=== PATIENT | male | born 1970 | race Caucasian/White ===

== ENCOUNTER 2024-12-07 16:23 | Inpatient (IN) ==
--- NOTE | 2024-12-07 16:38 | Emergency Department Note ---
Impression & Plan Atrial fibrillation with rapid ventricular response, Chest pain, Elevated troponin I level ED Provider Note NAME: BARBARA VILLATORO AGE: 54 SEX: M : 1970 ARRIVES VIA: Ambulance INFORMANT: Patient, ED PROVIDER(S): Dejon Phan DO CHIEF COMPLAINT: Palpitations HPI: The patient is a 54-year-old male who presented to the emergency department for an evaluation of palpitations. The patient states that he has been having fast heart rate as well as chest discomfort over the course the last 3 to 4 days. The patient went to his family doctor and they called 911 and sent the patient to the emergency department by ambulance for abnormal heart rhythm. He was treated with 4 baby aspirin prior to arrival. He was given a small IV fluid bolus. The patient does drink alcohol almost daily but he has not had any alcohol in the last 4 days since the symptoms started. He also notices dyspnea on exertion as well as pedal edema. ROS: See above HPI for pertinent positives & negatives. A total of 10 systems reviewed and were otherwise negative. PAST MEDICAL HISTORY: See Below PAST SURGICAL HISTORY: See Below FAMILY HISTORY: See Below SOCIAL HISTORY: See Below HOME MEDICATIONS: See Below ALLERGIES: See Below VITALS: See Below PHYSICAL EXAMINATION: GENERAL: Patient is awake alert in no acute distress patient is resting comfortably and showing no signs of anxiety EYES: The conjunctivae are clear. The pupils are round and reactive. EARS, NOSE, MOUTH AND THROAT: The nose is without any evidence of any deformity. NECK: The neck is nontender and supple. RESPIRATORY: Diminished breath sounds are noted at both bases. There were faint rales at both bases right greater than left. CARDIOVASCULAR: Regular rate and rhythm noted there no murmurs rubs or gallops normal S1 normal S2. GASTROINTESTINAL: The abdomen is soft. Abdomen is nontender. MUSCULOSKELETAL/EXTREMITIES: There is no evidence of gross deformity full range of motion is noted in the hips and shoulders. SKIN: Pedal edema was noted bilaterally. Skin was warm and dry. NEUROLOGIC: Patient is awake alert and oriented x3 MEDICAL DECISION MAKING: The patient is a 54-year-old male who presented to the emergency department for an evaluation of chest pain. The patient was seen at [facility]. Patient was sent to the emergency department by ambulance for atrial fibrillation and RVR. The patient appears to have a new onset of atrial fibrillation. He does have a history of alcohol use. The patient does have cardiomegaly on chest x-ray. He was treated with IV thiamine IV magnesium and IV Cardizem in the emergency department. His rate was significantly improved and the patient's symptoms also improved. I discussed the patient's laboratory and radiographic studies with him. [facility] They have agreed to evaluate the patient in the emergency department for further management and disposition. Triage Nursing notes reviewed. Prior medical records reviewed Vital Signs: reviewed and remarkable for tachycardia and hypertension. Differential diagnosis: Premature contractions, electrolyte abnormality, cardiac dysrhythmia, thyroid dysfunction, pulmonary embolism, infection, gastrointestinal, as well as other pathologies. ER treatment provided: See below Diagnostics interpreted by me: ECG: EKG was obtained in the emergency department. My interpretation is atrial fibrillation with RVR at 146 bpm. PVCs were noted. Poor R wave progression was noted with nonspecific ST segment abnormalities. No previous tracing available. Cardiac Monitoring: An order was placed for continuous cardiac monitoring. The monitor shows a rate of 98 bpm with atrial fibrillation. Laboratory studies: As stated above and show below. Imaging studies: See below. Radiographic imaging was reviewed by myself Consultation(s): I discussed this case with Dr. Murray who is [facility]. ED COURSE: Procedures: none Critical Care: I have personally spent greater than 40 minutes of critical care time in the direct management of this patient. This includes bedside care, interpretation of diagnostic studies, and testing, discussion with consultants, patient, and family members, and other required patient management activities. This 40 minutes is in excess of all separately billable procedures. Past Med/Surg History Problem List (Updated 12/07/24 @ 18:26 by Dejon Phan DO) Elevated troponin I level (Acute) Chest pain (Acute) Atrial fibrillation with rapid ventricular response (Acute) Social History Smoking Status: Current some day smoker Tobacco Type: Cigarettes Hx Alcohol Use: Yes Feels Safe at Home: Yes Results & Data (ED) Vital Signs Vital Signs - 24 hr 12/07/24 16:32 12/07/24 16:32 12/07/24 16:32 Temperature 37.5 C Temperature Source Oral Pulse Rate 127 H 132 H Pulse Rhythm Regular Pulse Strength Normal Respiratory Rate 29 H Respiratory Effort / Characteristics Non-Labored Respiratory Depth Normal Respiratory Pattern Regular Blood Pressure 153/124 H Blood Pressure Mean 133 Blood Pressure Position Sitting Pulse Oximetry 98 Oxygen Delivery Method Room Air Nasal Cannula Oxygen Flow Rate 4 Sepsis Recent Fever Within 48 Hours No Sepsis New/Unexplained Change in Mental Status N/A Sepsis Action Taken by Nursing Physician Notified Home Medications Current Medication List: was personally reviewed by me Laboratory Data Attestation: I reviewed the patient's lab results. 12/07/24 16:34 12/07/24 16:34 Lab Results 12/07/24 Range/Units 16:34 WBC 8.76 (4.8-10.8) K/ul RBC 5.44 (4.70-6.10) M/uL Hgb 17.1 (14.0-18.0) g/dl Hct 49.9 (42.0-52.0) % MCV 91.7 (80.0-100.0) fL MCH 31.4 (25.0-34.0) pg MCHC 34.3 (32.0-36.0) g/dL RDW Std Deviation 47.5 H (36.4-46.3) fL RDW Coeff of Crystal 14.1 (11.5-14.5) % Plt Count 204 (130-400) K/uL MPV 10.6 (9.4-12.4) fL Immature Gran % (Auto) 0.3 % Neut % (Auto) 68.8 % Lymph % (Auto) 19.4 % Mason % (Auto) 9.7 % Eos % (Auto) 0.8 % Baso % (Auto) 1.0 % Neut # (Auto) 6.02 (1.40-6.50) K/uL Lymph # (Auto) 1.70 (1.20-3.40) K/uL Mason # (Auto) 0.85 H (0.11-0.59) K/uL Eos # (Auto) 0.07 (0.00-0.50) K/uL Baso # (Auto) 0.09 (0.00-0.20) K/uL Immature Gran # (Auto) 0.03 (0.01-0.20) K/uL PT 13.6 H (9.0-12.0) Seconds INR 1.3 H (0.9-1.1) APTT 27 (21-31) Seconds PTT Ratio 1.0 Sodium 132 L (136-145) mmol/L Potassium 4.4 (3.5-5.1) mmol/L Chloride 101 (98-107) mmol/L Carbon Dioxide 22 (21-32) mmol/L Anion Gap 9 (3-11) BUN 19 (6-23) mg/dl Creatinine 1.07 (0.6-1.4) mg/dl Est Cr Clr Drug Dosing 104.5 ml/min eGFR 82.98 BUN/Creatinine Ratio 17.8 (10-20) Glucose 111 H (70-99(Fasting)) mg/dl Calcium 9.0 (8.6-10.3) mg/dl Magnesium 1.8 (1.7-2.4) mg/dl Total Bilirubin 2.1 H (0.2-1.0) mg/dl AST 48 H (13-39) U/L ALT 38 (7-52) U/L Alkaline Phosphatase 110 H (34-104) U/L Troponin I High Sens 44.5 H (0-20) pg/ml Total Protein 6.6 (6.0-8.3) gm/dl Albumin 4.1 (3.4-5.0) gm/dl Globulin 2.5 (2.5-4.0) gm/dl Albumin/Globulin Ratio 1.6 (0.9-2) TSH 1.143 (0.300-4.500) uIu/ml Administered Medications Magnesium Sulfate/Dextrose (Magnesium Sulfate / D5w) 1 gm in 100 mls @ 100 mls/hr IV Q1H [facility] Stop: 12/07/24 18:33 Last Admin: 12/07/24 18:14 Dose: 100 mls/hr Documented By: Infusion: 12/07/24 18:06 Dose: Infused Documented By: Admin: 12/07/24 16:53 Dose: 100 mls/hr Documented By: RICARDO Discontinued Medications Diltiazem HCl (Diltiazem Hcl 5 Mg/Ml 5 Ml Vial) 20 mg IV NOW STA Stop: 12/07/24 16:35 Last Admin: 12/07/24 16:51 Dose: 20 mg Documented By: RICARDO Co-signed By: QGV Thiamine HCl 200 mg/ Sodium (Chloride) 52 mls @ 210 mls/hr IV NOW STA Stop: 12/07/24 16:48 Last Admin: 12/07/24 18:15 Dose: 210 mls/hr Documented By: RICARDO Imaging Data Attestation: I personally reviewed and interpreted this imaging study as follows: My Impression: 1 view chest x-ray was obtained in the emergency department. My interpretation is cardiomegaly with right pleural effusion, final report below. Radiologist's Impression: Chest X-Ray 12/07/24 16:28 EXAM: XR chest 1V portable CLINICAL HISTORY: CHEST PAIN HKS/MRN TECHNIQUE: An X-ray image of the chest is obtained in AP projection. COMPARISON: No prior studies are available for comparison. FINDINGS: Pulmonary Parenchyma: Bilateral lower zonal pulmonary opacities with obliterated costophrenic angles bilaterally suggestive of mild pleural effusion Exaggerated bilateral bronchovascular markings likely caused by bronchitis for clinical correlation Small left midlung nodule, probable orthogonal view of prominent vessel, however a pulmonary nodule cannot entirely be ruled out. Heart and Mediastinum: Cardiac size cannot be accurately assessed in AP projection, however cardiac shadow appears enlarged. Bony Thorax: Bony thorax appears intact without fractures or deformities. Soft Tissues: Soft tissues overlying the chest wall are unremarkable. IMPRESSION: 1. Probable mild bilateral pleural effusion. 2. Accentuated bronchovascular markings consistent with bronchitic changes. 3. Small left midlung nodule, probable orthogonal view of prominent vessel, however a pulmonary nodule cannot entirely be ruled out. 4. Cardiomegaly. 5. Correlate clinically. Further evaluation with CT recommended if clinically warranted. Electronically signed by Rush Kennedy 12-07-2024 5:34 PM Discharge Plan Visit Data Chief Complaint: Chest Pain Stated Complaint: CHEST PAIN ED Provider: Dejon Phan Discharge Problem: Atrial fibrillation with rapid ventricular response, Chest pain, Elevated troponin I level Patient Disposition: Being Evaluated by Hospitalist Forms Stand Alone Forms: My [facility] Referrals Referrals: PCP,NO [Primary Care Provider] - Discharge Problem: Chest pain Qualifiers: Chest pain type: unspecified Qualified Code(s): R07.9 - Chest pain, unspecified
[2024-12-07 16:50] LABS: Basophils # (auto) 0.09 K/uL (0.00-0.20); Eosinophils # (auto) 0.07 K/uL (0.00-0.50); Eosinophils % (auto) 0.8 %; Hematocrit (blood only) 49.9 % (42.0-52.0); Hemoglobin 17.1 g/dl (14.0-18.0); Immature Granulocytes # (auto) 0.03 K/uL (0.01-0.20); Immature Granulocytes % (auto) 0.3 %; Lymphocytes % (auto) 19.4 %; Mean Corpuscular Hemoglobin 31.4 pg (25.0-34.0); Mean Corpuscular Hgb Conc 34.3 g/dL (32.0-36.0); Mean Corpuscular Volume 91.7 fL (80.0-100.0); Mean Platelet Volume 10.6 fL (9.4-12.4); Monocytes # (auto) 0.85 K/uL (0.11-0.59); Monocytes % (auto) 9.7 %; Neutrophils # (auto) 6.02 K/uL (1.40-6.50); Neutrophils % (auto) 68.8 %; Platelet Count 204 K/uL (130-400); RDW Coefficient of Variation 14.1 % (11.5-14.5); RDW Standard Deviation 47.5 fL (36.4-46.3); Red Blood Count 5.44 M/uL (4.70-6.10); White Blood Count 8.76 K/ul (4.8-10.8)
[2024-12-07] MEDS: dilTIAZem HCl 5 MG/ML 5 ML VIAL IV STA (16:51)
[2024-12-07] MEDS: MAGNESIUM SULFATE / D5W 1 GM/100 ML BAG IV SCH (16:53)
[2024-12-07 17:04] LABS: Albumin Globulin Ratio 1.6 (0.9-2); Albumin Level 4.1 gm/dl (3.4-5.0); BUN Creatinine Ratio 17.8 (10-20); Bilirubin,Total 2.1 mg/dl (0.2-1.0); Creatinine Clr Calc Pharmacy 104.5 ml/min; Globulin 2.5 gm/dl (2.5-4.0); Magnesium 1.8 mg/dl (1.7-2.4); Potassium 4.4 mmol/L (3.5-5.1); Total Protein 6.6 gm/dl (6.0-8.3)
[2024-12-07 17:10] LABS: Troponin I High Sensitivity 44.5 pg/ml (0-20)
[2024-12-07 17:20] LABS: Thyroid Stimulating Hormone 1.143 uIu/ml (0.300-4.500)
--- NOTE | 2024-12-07 17:34 | XRay Report ---
EXAM: XR chest 1V portable CLINICAL HISTORY: CHEST PAIN HKS/MRN TECHNIQUE: An X-ray image of the chest is obtained in AP projection. COMPARISON: No prior studies are available for comparison. FINDINGS: Pulmonary Parenchyma: Bilateral lower zonal pulmonary opacities with obliterated costophrenic angles bilaterally suggestive of mild pleural effusion Exaggerated bilateral bronchovascular markings likely caused by bronchitis for clinical correlation Small left midlung nodule, probable orthogonal view of prominent vessel, however a pulmonary nodule cannot entirely be ruled out. Heart and Mediastinum: Cardiac size cannot be accurately assessed in AP projection, however cardiac shadow appears enlarged. Bony Thorax: Bony thorax appears intact without fractures or deformities. Soft Tissues: Soft tissues overlying the chest wall are unremarkable. IMPRESSION: 1. Probable mild bilateral pleural effusion. 2. Accentuated bronchovascular markings consistent with bronchitic changes. 3. Small left midlung nodule, probable orthogonal view of prominent vessel, however a pulmonary nodule cannot entirely be ruled out. 4. Cardiomegaly. 5. Correlate clinically. Further evaluation with CT recommended if clinically warranted. Electronically signed by Rush Kennedy 12-07-2024 5:34 PM
[2024-12-07 17:46] LABS: INR 1.3 (0.9-1.1); Partial Thromboplastin Time 27 Seconds (21-31); Prothrombin Time 13.6 Seconds (9.0-12.0)
[2024-12-07] MEDS: THIAMINE HCL 200 MG in SODIUM CHLORIDE 0.9% 50 ML IV STA (18:15)
--- NOTE | 2024-12-07 18:20 | History & Physical Report ---
Date of Service December 07, 2024 History of Present Illness Chief Complaint: CP Primary Care Provider: NO PCP Patient is 54 year old male with PMH HTN, anxiety, ETOH abuse, tobacco use presented to ER with c/o CP. Patient states moved to area several years ago but has not got established with PCP here. He reports being on BP med (?lisinopril 20mg, HCTZ) and an unknown anxiety medicine however he stopped taking several years ago since he never established with PCP. He attempted to get established at [facility] today. Presented there today for CP and found to be in Afib RVR and sent to ER. Patient states started with anterior CP with exertion, neck tightness, and SOB 4 days ago. He also noticed LE edema and swollen abdomen 4 days ago. Also felt lightheaded but denies syncope. He reports ongoing cough. Drinks Rum 3 "big glasses" daily and estimates it equal approximately 9 shots. He reports last drink 3-4 days ago when his CP & SOB symptoms started. Attempting to quit smoking went from 1/2ppd and past 2 months smoking 2-3 cigarettes a day. Past 4 days has not been smoking. He denies known history of atrial fibrillation, CHF, cirrhosis. Denies history ETOH withdrawal but states hasn't been without alcohol for several years. Denies fever/chills, diaphoresis, N/V/D/C, LOPEZ, vision changes, hemoptysis, sore throat, rhinorrhea, abdominal pain, extremity weakness, rashes, urinary symptoms. Allergies Allergy/AdvReac Type Severity Reaction Status Date / Time amoxicillin Allergy Mild Rash Verified 12/08/24 08:20 LINDA LINDA Allergy Rash Uncoded 12/08/24 08:20 Home Medications Medication Instructions Recorded Confirmed Type No Known Home Medications 12/07/24 12/07/24 History No Known Home Medications 12/07/24 12/07/24 History Past Med/Surg History Problem List (Updated 12/08/24 @ 08:20 by Tere Suarez) ETOH abuse Elevated LFTs Abnormal CXR Elevated troponin I level (Acute) Chest pain (Acute) Atrial fibrillation with rapid ventricular response (Acute) Atrial fibrillation with RVR History of eustachian tube dysfunction H/O hernia repair Anxiety Hypertension Medical History (Updated 12/08/24 @ 08:20 by Tere Suarez) Tobacco use Anxiety HTN (hypertension) Family History (System 12/08/24 @ 08:20 by Tere Suarez) Mother Hypertension Father Hypertension Social History (System 12/08/24 @ 08:20 by Tere Suarez) Smoking Status: Current every day smoker Tobacco Type: Cigarettes Age Started Using Tobacco: 16; Age Quit Using Tobacco: 54; packs per day: 1; Cigarettes Per Day: 1 pack per day; Second Hand Exposure: No; Do You Dip or Chew Tobacco: No; Hx Alcohol Use: Yes Alcohol type: hard liquor Alcohol Intake Frequency: 2-4 x/Month Hx Substance Use: No Preferred Language: Omani Communication Ability: Effective Visual Impairment: Limited Hearing Ability: Normal Pharmacy Specialist Required: No Beliefs That Will Affect Care: None marital status: Single Current Living Situation: Parent Current Living Situation Comment: Lives with parents. current occupational status: employed How many Children do You have: 0 Feels Safe at Home: Yes Safety Concerns: Feels Safe At This Time Childhood Exposure to Second-Hand Smoke: No Diet: regular caffeine: No during the past year weight has: remained stable Dental Care, Regularly: No Physical Activity Frequency: Does not Exercise Seatbelt Use: always Sunscreen Use: Yes Do you think of yourself as: straight/heterosexual Sexual Activity: has been sexually active, but not for at least 12 months Gender Identity: Male Assistive Devices: Glasses Review of Systems Review of Systems: All systems reviewed & are unremarkable except as noted in HPI & below Physical Exam Physical Exam: General: no acute distress, obese male Head: normocephalic, atraumatic Eyes: conjunctiva non-injected, anicteric ENT: normal inspection external ears, nose, mucous membranes moist Neck: supple, trachea midline Lungs: clear, no respiratory distress, faint expiratory wheeze, slightly diminished breath sounds at bases CV: irregularly irregular, rate 106, +pretibial edema Abd: protuberant, normal BS, soft, non-tender Ext: no cyanosis, no calf tenderness Neuro: A&O x 3, no focal deficits noted, normal affect Skin: warm, dry Results & Data Results & Data Vital Signs (Past 12 Hours) Vital Signs Temp Pulse Resp BP Pulse Ox O2 Del Method O2 Flow Rate 12/07/24 16:32 132 H 12/07/24 16:32 Nasal Cannula 4 12/07/24 16:32 37.5 C 127 H 29 H 153/124 H 98 Room Air Laboratory Results Short CBC 12/07/24 Range/Units 16:34 WBC 8.76 (4.8-10.8) K/ul Hgb 17.1 (14.0-18.0) g/dl Hct 49.9 (42.0-52.0) % Plt Count 204 (130-400) K/uL BMP 12/07/24 16:34 Sodium 132 L Potassium 4.4 Chloride 101 Carbon Dioxide 22 BUN 19 Creatinine 1.07 Glucose 111 H Calcium 9.0 Liver Function 12/07/24 Range/Units 16:34 Total Bilirubin 2.1 H (0.2-1.0) mg/dl AST 48 H (13-39) U/L ALT 38 (7-52) U/L Alkaline Phosphatase 110 H (34-104) U/L Albumin 4.1 (3.4-5.0) gm/dl Diagnostic Findings Chest X-Ray 12/07/24 16:28 EXAM: XR chest 1V portable CLINICAL HISTORY: CHEST PAIN HKS/MRN TECHNIQUE: An X-ray image of the chest is obtained in AP projection. COMPARISON: No prior studies are available for comparison. FINDINGS: Pulmonary Parenchyma: Bilateral lower zonal pulmonary opacities with obliterated costophrenic angles bilaterally suggestive of mild pleural effusion Exaggerated bilateral bronchovascular markings likely caused by bronchitis for clinical correlation Small left midlung nodule, probable orthogonal view of prominent vessel, however a pulmonary nodule cannot entirely be ruled out. Heart and Mediastinum: Cardiac size cannot be accurately assessed in AP projection, however cardiac shadow appears enlarged. Bony Thorax: Bony thorax appears intact without fractures or deformities. Soft Tissues: Soft tissues overlying the chest wall are unremarkable. IMPRESSION: 1. Probable mild bilateral pleural effusion. 2. Accentuated bronchovascular markings consistent with bronchitic changes. 3. Small left midlung nodule, probable orthogonal view of prominent vessel, however a pulmonary nodule cannot entirely be ruled out. 4. Cardiomegaly. 5. Correlate clinically. Further evaluation with CT recommended if clinically warranted. Electronically signed by Rush Kennedy 12-07-2024 5:34 PM ECG Additional Comments: EKG: Atrial fibrillation, RVR, rate 146, nonspecific ST changes per my interpretation Code Status & VTE Plan VTE Prophylaxis Plan VTE Prophylaxis will be ordered: Yes Supervising Physician Co-Signing Physician Notes Pt seen and examined by me , care coordinated w/ J. JOSIE Prince, pls refer to her note above for further detail. 54 yo M with hx of HTN, anxiety, ETOH abuse, tobacco use presented to ER with c/o CP. Patient states moved to [facility] several years ago but has not got established with PCP here. He reports being on BP med (?lisinopril 20mg, HCTZ) and an unknown anxiety medicine however he stopped taking several years ago since he never established with PCP. He attempted to get established at [facility] today. Presented there today for CP and found to be in Afib RVR and sent to ER. Patient states started with anterior CP with exertion, neck tightness, and SOB 4 days ago. He also noticed LE edema and swollen abdomen 4 days ago. Pt also admits he drinks Rum 3 "big glasses" daily and estimates it equal approximately 9 shots. He reports last drink 3-4 days ago when his CP & SOB symptoms started. Currently sitting up in bed in [facility]. He is awake, alert, answers appropriately. heart sounds irregular tachycardic. lung sounds with mild wheezes. abdomen soft, nontender. LE edema 1+ b/l. pt is moving extremities. Given IV diltiazem in ER, mag thiamine. Will start IV heparin and po metoprolol. Will obtain echo and will consult w/ cardiology. Monitor for alcohol withdrawal, start gabapentin, prn ativan, thiamine, folate. MD Trevor
[2024-12-07] MEDS ORDERED: Heparin IV Adult Wt-Based Standard *NO* INITIAL Bolus Protocol IV SCH (18:39)
[2024-12-07] MEDS: LORazepam 0.5 MG TAB PO STA (19:13)
[2024-12-07] MEDS: METOPROLOL TARTRATE 50 MG TAB PO STA (19:13)
[2024-12-07] MEDS ORDERED: ACETAMINOPHEN 325 MG TAB PO PRN (19:48)
[2024-12-07] MEDS ORDERED: LORazepam 2 MG/1 ML VIAL IV PRN (19:48)
[2024-12-07] MEDS ORDERED: PROMETHAZINE 6.25 MG/50.25 ML BAG IV PRN (19:48)
[2024-12-07] MEDS ORDERED: GABAPENTIN 1200MG ALCOHOL WITHDRAWAL LOAD PO STA (19:48)
[2024-12-07 20:03] LABS: Phosphorus 3.7 mg/dl (2.5-4.9)
[2024-12-07] MEDS: HEPARIN 25000 UNIT/500 ML D5W 25,000 UNITS/500 ML BAG IV SCH (20:33)
[2024-12-07] MEDS: GABAPENTIN 600 MG TAB PO ONE (21:19)
[2024-12-07] MEDS: METOPROLOL TARTRATE 25 MG TAB PO SCH (22:50)
[2024-12-08 00:18] LABS: Appearance Urine Clear (Clear); Bacteria Urine Automated None Seen (None Seen); Bilirubin Urine 1+ (Negative); Blood Urine Negative (Negative); Cast Urine Automated >20 /lpf (0-2); Color Urine Dark Yellow; Epithelial Cell Urine Auto 0-2 /hpf (0-2); Glucose Urine UA Negative (Negative); Hyaline Casts Urine Present /lpf (None Presnt); Ketones Urine Negative (Negative); Leukocyte Esterase Urine Negative (Negative); Nitrite Urine Negative (Negative); Protein Urine 3+ (Negative); RBC Urine Automated 0-2 /hpf (0-2); Specific Gravity Urine 1.026 (1.000-1.030); Sperm Urine Present (None Prsent); Urobilinogen Urine Positive (Negative); WBC Urine Automated 0-5 /hpf (0-5)
[2024-12-08 02:09] LABS: Hematocrit (blood only) 47.6 % (42.0-52.0); Hemoglobin 15.9 g/dl (14.0-18.0); Mean Corpuscular Hemoglobin 30.8 pg (25.0-34.0); Mean Corpuscular Hgb Conc 33.4 g/dL (32.0-36.0); Mean Corpuscular Volume 92.2 fL (80.0-100.0); Mean Platelet Volume 10.4 fL (9.4-12.4); Platelet Count 194 K/uL (130-400); RDW Coefficient of Variation 14.1 % (11.5-14.5); RDW Standard Deviation 48.7 fL (36.4-46.3); Red Blood Count 5.16 M/uL (4.70-6.10); White Blood Count 8.22 K/ul (4.8-10.8)
[2024-12-08 02:27] LABS: Albumin Globulin Ratio 1.8 (0.9-2); Albumin Level 3.8 gm/dl (3.4-5.0); Bilirubin,Total 1.6 mg/dl (0.2-1.0); Calcium 8.7 mg/dl (8.6-10.3); Creatinine Clr Calc Pharmacy 106.5 ml/min; Globulin 2.1 gm/dl (2.5-4.0); Magnesium 2.1 mg/dl (1.7-2.4); Potassium 4.7 mmol/L (3.5-5.1); Total Protein 5.9 gm/dl (6.0-8.3)
[2024-12-08 02:37] LABS: ANTI-Xa, UFH(UnfractionatedHep 0.53 IU/ml (0.3-0.7)
[2024-12-08] MEDS: GABAPENTIN 600 MG TAB PO SCH ×2 (05:48→21:22)
[2024-12-08 07:15] LABS: Estimated Average Glucose 128 mg/dl; Hemoglobin A1C 6.1 % (4.5-5.6)
[2024-12-08] MEDS: FOLIC ACID 1 MG TAB PO SCH (10:01)
[2024-12-08] MEDS: MULTIVITAMIN TAB PO SCH (10:01)
[2024-12-08] MEDS: THIAMINE HCL 100 MG TAB PO SCH (10:02)
[2024-12-08 10:12] LABS: ANTI-Xa, UFH(UnfractionatedHep 0.65 IU/ml (0.3-0.7)
--- NOTE | 2024-12-08 10:54 | Cardiology Consultation ---
Date of Consultation December 08, 2024 Assessment & Plan (1) Acute HFrEF (heart failure with reduced ejection fraction): (2) Cardiomyopathy: (3) Atrial fibrillation with rapid ventricular response: (4) ETOH abuse: (5) Tobacco use: (6) Pericardial effusion: Plan ASSESSMENT/PLAN: 1. Acute heart failure with reduced EF: Etiology likely related to alcohol abuse and/or tachycardia in the setting of atrial fibrillation with rapid ventricular response. We discussed this in detail. He is hypervolemic. NYHA class III/IV symptoms. Start Lasix 20 mg IV twice daily. Strict I's and O's (discussed with nursing staff and patient). Daily weights. We discussed the importance of a low-sodium diet, less than 2000 mg daily. Heart failure program referral. We discussed close follow-up in the office and that he will be placed on several new medications to try to improve his quality of life and hopefully LV systolic function. 2. Atrial fibrillation with rapid ventricular response: Onset unclear. May have been present for some time. Could be related to his excessive alcohol use, which was discussed with him. Heart rate improved with low-dose metoprolol. Continue metoprolol tartrate for now. On discharge, would recommend metoprolol succinate in its place given heart failure with reduced EF. Anticoagulation for stroke risk reduction. Can continue heparin drip for now but would recommend Eliquis 5 mg twice daily on discharge. Monitor CBC and renal function. We discussed potentially performing transesophageal echo and cardioversion but he declines. Could consider cardioversion in the outpatient setting after 4 weeks of therapeutic anticoagulation therapy. 3. Cardiomyopathy: Etiology likely related to excessive alcohol abuse and/or tachycardia from A-fib with RVR. Cannot exclude ischemic heart disease. We discussed these possibilities. He declines coronary angiography. He prefers medical therapy and alcohol cessation. If LV systolic function remains severely reduced despite these measures, can further discuss ischemic evaluation in the o utpatient setting. If related to alcohol/tachycardia, should improve with medical therapy, alcohol cessation, and heart rate control. No indication for ICD for primary prevention currently, but would consider if LV systolic function does not improve despite optimal medical therapy in 3 months. Continue telemetry. 4. Pericardial effusion: Small. He will have repeat echocardiograms in the near future to reevaluate LV systolic function. Clinically not in tamponade. 5. Tobacco abuse: Recommended smoking cessation. 6. Alcohol abuse: We discussed at length the importance of cessation from alcohol use, given his cardiac issues as noted. He also has elevated AST and elevated bilirubin. Will defer to primary hospitalist service for further evaluation of his liver if indicated. We discussed that his heart failure will not likely improve if he continues to consume large amounts of alcohol and he could lose his life given his current cardiac issues. We also discussed the fact that if alcohol is playing a role, he should show improvement with appropriate therapy. He expressed understanding. 7. Disposition: Cardiology will continue to follow. Heart failure program close follow-up after discharge. Patient care communicated with primary hospitalist, Dr. Johnson. Highly complex medical issues. Thank you for allowing me to participate in the care of your patient. Please call for any other questions or concerns. Sincerely, Sunny Gee M.D. History of Present Illness Reason for Consultation: "afib rvr" Requesting Physician: Zenaida Prince PA-C Attending Physician: Bret Murray MD History of Present Illness Mr. Maza is a pleasant 54-year-old gentleman with a history significant for prediabetes and hypertension. He has not followed up with primary care for some time. He was admitted on 12/07/2024 with atrial fibrillation with rapid ventricular response. For a few months, he has noted a chest discomfort on the right side of his chest and left that radiates to the right neck. It occurs mostly with exertion and was described as a pressure sensation that lasts for a few seconds before spontaneously resolving. For the last 1 week, he has noted increased lower extremity swelling, dyspnea on exertion, and orthopnea. He denies syncope but has had near syncope if walking quickly. He denies palpitations, melena, hematochezia, or hematuria. He does not maintain a low-sodium diet. He consumes large amounts of alcohol and has done so for approximately 10 years. His last alcoholic beverage was 12/01/2024. He was noted to be in atrial fibrillation with rapid ventricular response and was administered intravenous diltiazem in the ER. He was placed on a heparin drip. Intravenous diltiazem was discontinued in favor of metoprolol titrate by the admitting hospitalist service. Review of systems: As above. Family history: No known premature CAD. Social history: Currently smoking 2 to 3 cigarettes/day, down from 0.5 pack/day. He has consumed approximately 9 shots of rum per day for the past 10 years. His last alcoholic beverage was 12/01/2024. He denies drug abuse. Lives at home with his parents. He is not . No children. Works for [employer], packaging frozen vegetables. He was unaccompanied. Allergies Allergy/AdvReac Type Severity Reaction Status Date / Time amoxicillin Allergy Mild Rash Verified 12/08/24 08:20 LINDA LINDA Allergy Rash Uncoded 12/08/24 08:20 Home Medications Medication Instructions Recorded Confirmed Type No Known Home Medications 12/07/24 12/07/24 History No Known Home Medications 12/07/24 12/07/24 History Patient History Medical History Tobacco use Anxiety HTN (hypertension) Family History (System 12/08/24 @ 08:20 by Tere Suarez) Mother Hypertension Father Hypertension Social History (System 12/08/24 @ 08:20 by Tere Suarez) Smoking Status: Current every day smoker Tobacco Type: Cigarettes Age Started Using Tobacco: 16; Age Quit Using Tobacco: 54; packs per day: 1; Cigarettes Per Day: 1 pack per day; Second Hand Exposure: No; Do You Dip or Chew Tobacco: No; Hx Alcohol Use: Yes Alcohol type: hard liquor Alcohol Intake Frequency: 2-4 x/Month Hx Substance Use: No Preferred Language: Khmer Communication Ability: Effective Visual Impairment: Limited Hearing Ability: Normal Safe Technician Required: No Beliefs That Will Affect Care: None marital status: Single Current Living Situation: Parent and Family Current Living Situation Comment: Lives with parents. current occupational status: employed How many Children do You have: 0 Feels Safe at Home: Yes Safety Concerns: Feels Safe At This Time Childhood Exposure to Second-Hand Smoke: No Diet: regular caffeine: No during the past year weight has: remained stable Dental Care, Regularly: No Physical Activity Frequency: Does not Exercise Seatbelt Use: always Sunscreen Use: Yes Do you think of yourself as: straight/heterosexual Sexual Activity: has been sexually active, but not for at least 12 months Gender Identity: Male Assistive Devices: None Physical Exam Physical Exam: Gen.: No acute distress. Alert and oriented. HEENT: Anicteric sclera. Neck: Thick neck. No bruits. Normal carotid upstrokes bilaterally. Cardiac: Irregularly irregular. Normal S1-S2. No murmurs, rubs, or gallops. Pulmonary: Clear to auscultation bilaterally without wheezes, rales, or rhonchi. Abdomen: Soft, nontender, nondistended, with normoactive bowel sounds. No bruits noted. Extremities: 2+ radial pulses bilaterally. 2+ posterior tibialis pulses bilaterally. 2+ bilateral lower extremity edema up to the knees. Trace lower extremity edema above the knees. No cyanosis. Results & Data Vital Signs (Past 12 Hours) Vital Signs Temp Pulse Resp BP Pulse Ox O2 Del Method O2 Flow Rate 12/08/24 08:30 36.3 C L 72 20 144/126 H 96 Nasal Cannula 2 12/08/24 03:55 36.3 C L 90 18 151/97 H 94 Nasal Cannula Intake & Output 12/06/24 12/07/24 12/08/24 12/09/24 06:59 06:59 06:59 06:59 Intake Total 1012.00 / 1012.00 880.0 / 880.0 Output Total 1600 / 1600 Balance 1012.00 / 1012.00 -720.0 / -720.0 Weight 261 lb 3.964 oz 252 lb 13.923 oz Laboratory Results Laboratory Results - last 24 hr 12/07/24 12/07/24 12/07/24 16:34 19:23 Unknown WBC 8.76 RBC 5.44 Hgb 17.1 Hct 49.9 MCV 91.7 MCH 31.4 MCHC 34.3 RDW Std Deviation 47.5 H RDW Coeff of Crystal 14.1 Plt Count 204 MPV 10.6 Immature Gran % (Auto) 0.3 Neut % (Auto) 68.8 Lymph % (Auto) 19.4 Bennett % (Auto) 9.7 Eos % (Auto) 0.8 Baso % (Auto) 1.0 Neut # (Auto) 6.02 Lymph # (Auto) 1.70 Bennett # (Auto) 0.85 H Eos # (Auto) 0.07 Baso # (Auto) 0.09 Immature Gran # (Auto) 0.03 PT 13.6 H INR 1.3 H APTT 27 PTT Ratio 1.0 Heparin Anti-Xa, Unfract Sodium 132 L Potassium 4.4 Chloride 101 Carbon Dioxide 22 Anion Gap 9 BUN 19 Creatinine 1.07 Est Cr Clr Drug Dosing 104.5 eGFR 82.98 BUN/Creatinine Ratio 17.8 Glucose 111 H Estimat Average Glucose Hemoglobin A1c Calcium 9.0 Phosphorus 3.7 Magnesium 1.8 Total Bilirubin 2.1 H AST 48 H ALT 38 Alkaline Phosphatase 110 H Troponin I High Sens 44.5 H 41.0 H B-Natriuretic Peptide Total Protein 6.6 Albumin 4.1 Globulin 2.5 Albumin/Globulin Ratio 1.6 TSH 1.143 Urine Color Dark Yellow Urine Appearance Clear Urine pH 5.0 Ur Specific [place] 1.026 Urine Protein 3+ H Urine Glucose (UA) Negative Urine Ketones Negative Urine Blood Negative Urine Nitrite Negative Urine Bilirubin 1+ H Urine Urobilinogen Positive H Ur Leukocyte Esterase Negative Urine WBC (Auto) 0-5 Urine RBC (Auto) 0-2 U Hyaline Cast (Auto) >20 H U Epithel Cells (Auto) 0-2 Urine Bacteria (Auto) None Seen Hyaline Casts Present A Urine Sperm Present A Ethyl Alcohol mg/dL < 10.0 12/08/24 12/08/24 12/08/24 00:02 01:51 09:32 WBC 8.22 RBC 5.16 Hgb 15.9 Hct 47.6 MCV 92.2 MCH 30.8 MCHC 33.4 RDW Std Deviation 48.7 H RDW Coeff of Crystal 14.1 Plt Count 194 MPV 10.4 Immature Gran % (Auto) Neut % (Auto) Lymph % (Auto) Bennett % (Auto) Eos % (Auto) Baso % (Auto) Neut # (Auto) Lymph # (Auto) Bennett # (Auto) Eos # (Auto) Baso # (Auto) Immature Gran # (Auto) PT INR APTT PTT Ratio Heparin Anti-Xa, Unfract 0.53 0.65 Sodium 126 L Potassium 4.7 Chloride 96 L Carbon Dioxide 24 Anion Gap 6 BUN 21 Creatinine 1.05 Est Cr Clr Drug Dosing 106.5 eGFR 84.88 BUN/Creatinine Ratio 20.0 Glucose 105 H Estimat Average Glucose 128 Hemoglobin A1c 6.1 H Calcium 8.7 Phosphorus 4.0 Magnesium 2.1 Total Bilirubin 1.6 H AST 42 H ALT 34 Alkaline Phosphatase 93 Troponin I High Sens 37.6 H B-Natriuretic Peptide 1320 H Total Protein 5.9 L Albumin 3.8 Globulin 2.1 L Albumin/Globulin Ratio 1.8 TSH Urine Color Urine Appearance Urine pH Ur Specific [place] Urine Protein Urine Glucose (UA) Urine Ketones Urine Blood Urine Nitrite Urine Bilirubin Urine Urobilinogen Ur Leukocyte Esterase Urine WBC (Auto) Urine RBC (Auto) U Hyaline Cast (Auto) U Epithel Cells (Auto) Urine Bacteria (Auto) Hyaline Casts Urine Sperm Ethyl Alcohol mg/dL Diagnostic Findings Labs reviewed and notable for normal blood counts, normal potassium, stable renal function, normal magnesium, normal TSH, mildly elevated total bilirubin and AST. Mildly elevated high-sensitivity troponin (peak 44 on presentation). Elevated BNP. Mildly elevated A1c. ECGs personally reviewed: ECG 12/07/2024 at 1629: Atrial fibrillation with RVR 146 bpm. Incomplete RBBB. Possible anterolateral infarct. ECG 12/08/2024 at 6:35 AM: Atrial fibrillation 86 bpm. Incomplete RBBB. History and physical report reviewed. Chest x-ray 12/07/2024: Probable mild bilateral pleural effusion. Extenuated bronchovascular markings consistent with bronchitic changes. Findings as per radiology. Telemetry personally reviewed: Atrial fibrillation with rapid ventricular response initially, with improved heart rate since then. ECHO 12/08/2024: 1. Mildly dilated left ventricle with severely reduced systolic function. EF 20-25%. Global hypokinesis. Moderate concentric left ventricular hypertrophy. 2. Moderately dilated right ventricle with moderately reduced systolic function. 3. Severe biatrial dilation. 4. Mild mitral regurgitation. 5. Mild pulmonary hypertension. Estimated RVSP 37 mmHg. 6. Small pericardial effusion without echocardiographic evidence of tamponade physiology. 7. No prior study available for comparison. Medications Administered Current Inpatient Medications Acetaminophen (Acetaminophen 325 Mg Tab) 650 mg PO Q4H PRN PRN Reason: Pain or Fever Stop: 01/06/25 19:47 Folic Acid (Folic Acid 1 Mg Tab) 1 mg PO QAM [facility] Stop: 01/07/25 08:59 Last Admin: 12/08/24 10:01 Dose: 1 mg Gabapentin (Gabapentin 600 Mg Tab) 600 mg PO Q6H [facility] Stop: 12/08/24 12:01 Last Admin: 12/08/24 05:48 Dose: 600 mg Gabapentin (Gabapentin 600 Mg Tab) 600 mg PO Q8H [facility] Stop: 12/09/24 14:01 Gabapentin (Gabapentin 600 Mg Tab) 600 mg PO Q12H [facility] Stop: 12/10/24 12:01 Gabapentin (Gabapentin 600 Mg Tab) 600 mg PO Q24H [facility] Stop: 12/11/24 12:01 Heparin Sodium/Dextrose (Heparin Sodium/Dextrose) 25,000 units in 500 mls @ 33 mls/hr IV .[id number] [facility]; Protocol Stop: 01/06/25 19:34 Last Titration: 12/08/24 07:09 Dose: 1,650 units/hr, 33 mls/hr Promethazine HCl (Phenergan) 6.25 mg in 50.25 mls @ 201 mls/hr IV Q6H PRN PRN Reason: Nausea And Vomiting Stop: 01/06/25 19:47 Lorazepam (Lorazepam 2 Mg/1 Ml Vial) 1 mg IV ONE PRN; Protocol PRN Reason: EtoH Withdrawal AWSS 6-10 Metoprolol Tartrate (Metoprolol Tartrate 25 Mg Tab) 12.5 mg PO Q6H [facility] Stop: 01/06/25 21:59 Last Admin: 12/08/24 10:01 Dose: 12.5 mg Multivitamins (Multivitamin Tab) 1 tab PO [facility] Stop: 01/07/25 08:59 Last Admin: 12/08/24 10:01 Dose: 1 tab Polyethylene Glycol (Polyethylene (Miralax) 17 Gm Pack) 17 gm PO DAILY PRN PRN Reason: Constipation Stop: 01/06/25 19:47 Thiamine HCl (Thiamine Hcl 100 Mg Tab) 100 mg PO QAM [facility] Stop: 01/07/25 08:59 Last Admin: 12/08/24 10:02 Dose: 100 mg PG Care Time/CCT Total # of Minutes Spent Total Time Spent with Patient: Total time spent is greater than 50% in coordination of care (as documented) at patient's floor/unit and/or counseling patient: Coding Level of Care Code 78215 OFFICE CONSULT LVL M Diagnoses Acute HFrEF (heart failure with reduced ejection fraction) I50.21 Cardiomyopathy I42.9 Atrial fibrillation with rapid ventricular response I48.91 ETOH abuse F10.10 Tobacco use Z72.0 Pericardial effusion I31.39
--- NOTE | 2024-12-08 11:31 | Hospitalist Progress Note ---
Date of Service December 08, 2024 Assessment & Plan (1) Atrial fibrillation with RVR: Plan: -metoprolol -heparin drip -echo -cardiology consulted (2) ETOH abuse: Plan: -gabapentin -prn ativan -thiamine -folate Admission and Anticipated Discharge Date Admission Date: December 07, 2024 Supervising Physician Co-Signing Physician Notes Pt seen and examined by me , care coordinated w/ Fior. JOSIE Prince, pls refer to her note above for further detail. 54 yo M with hx of HTN, anxiety, ETOH abuse, tobacco use presented to ER with c/o CP. Patient states moved to [facility] several years ago but has not got established with PCP here. He reports being on BP med (?lisinopril 20mg, HCTZ) and an unknown anxiety medicine however he stopped taking several years ago since he never established with PCP. He attempted to get established at [facility] today. Presented there today for CP and found to be in Afib RVR and sent to ER. Patient states started with anterior CP with exertion, neck tightness, and SOB 4 days ago. He also noticed LE edema and swollen abdomen 4 days ago. Pt also admits he drinks Rum 3 "big glasses" daily and estimates it equal approximately 9 shots. He reports last drink 3-4 days ago when his CP & SOB symptoms started. Currently sitting up in bed in [facility]. He is awake, alert, answers appropriately. heart sounds irregular tachycardic. lung sounds with mild wheezes. abdomen soft, nontender. LE edema 1+ b/l. pt is moving extremities. Given IV diltiazem in ER, mag thiamine. Will start IV heparin and po metoprolol. Will obtain echo and will consult w/ cardiology. Monitor for alcohol withdrawal, start ga. MD Trevor Subjective No events overnight, pt resting comfortably in bed. Review of Systems Review of Systems: CONST: Negative for fever, body aches and chills. HENT: Negative for neck pain/stiffness, headache, congestion, sore throat, swelling. EYES: Negative for discharge/pain or vision changes. RESP: Negative for cough/hemoptysis and shortness of breath. CV: Negative chest pain, difficulty breathing, palpitations. ABD: Negative pain, nausea, vomiting. : Negative increase frequency, dysuria, blood in urine or stool. MUSC: Negative for muscle aches, edema. SKIN: Negative rash, lesions/sores. NEURO: Negative headache, dizziness, weakness. Physical Exam Physical Exam: GENERAL APPEARANCE NAD, activity normal for age, well developed/ well nourished, no cyanosis, pallor, or diaphoresis. EYES lids/conjunctiva normal. EARS/NOSE/THROAT Mucous membranes moist, nares normal, lips/teeth normal uvula midline without oral pharyngeal erythema, exudate or swelling TMs normal bilaterally. No lymphangitis/lymphedema. HEAD/NECK normocephalic atraumatic, no facial trauma, neck is supple. RESPIRATORY respiratory effort normal, speaks in full sentences, no tripod position, no accessory muscle use. Lungs clear to auscultation without rhonchi, wheezes, rales CARDIAC Regular rate and rhythm, no edema. ABDOMINAL Soft, ND/NT. No evidence of fluid wave. No pulsatile masses on exam, rebound tenderness, Verma sign or pain over Mcburney's point. MUSCLES/EXTREMITIES No abnormal range of motion, no swelling. SKIN Warm, pink and dry. No rashes, dermatoses, petechiae or lesions. NEUROLOGICAL Speech is clear and appropriate. Normal level of consciousness. Gait and coordination are normal. 5/5 strength in all extremities. PSYCH Normal mood and affect. Judgement/competence is appropriate Results & Data Results & Data Vital Signs (Past 12 Hours) Vital Signs Temp Pulse Resp BP Pulse Ox O2 Del Method O2 Flow Rate 12/08/24 08:30 36.3 C L 72 20 144/126 H 96 Nasal Cannula 2 12/08/24 03:55 36.3 C L 90 18 151/97 H 94 Nasal Cannula PG Care Time/CCT Total # of Minutes Spent Total Time Spent with Patient: Total time spent is greater than 50% in coordination of care (as documented) at patient's floor/unit and/or counseling patient: Coding Level of Care Code 85401 SUB INP/OBS CARE 2/35MIN Diagnoses Atrial fibrillation with RVR I48.91 ETOH abuse F10.10
[2024-12-08 12:11] LABS: BUN Creatinine Ratio 17.8 (10-20); Calcium 8.9 mg/dl (8.6-10.3); Creatinine Clr Calc Pharmacy 110.8 ml/min; Potassium 4.6 mmol/L (3.5-5.1)
[2024-12-08] MEDS: FUROSEMIDE INJ 20 MG/2 ML VIAL IV SCH (13:59)
[2024-12-08] MEDS: SPIRONOLACTONE 25 MG TAB PO SCH (13:59)
--- NOTE | 2024-12-08 14:45 | XCELERA ---
[id number] [id number]
--- NOTE | 2024-12-08 21:54 | Electrocardiogram Report ---
Test Reason : Blood Pressure : */* mmHG Vent. Rate : 146 BPM Atrial Rate : * BPM P-R Int : * ms QRS Dur : 108 ms QT Int : 302 ms P-R-T Axes : * -76 47 degrees QTcB Int : 470 ms Atrial fibrillation with rapid ventricular response Incomplete right bundle branch block Left anterior fascicular block Anterolateral infarct , age undetermined Abnormal ECG No previous ECGs available Confirmed by Flaquito Gee ([id number]) on 12/08/2024 9:54:08 PM Referred By: REFERRED SELF Confirmed By: Flaquito Gee
--- NOTE | 2024-12-08 21:55 | Electrocardiogram Report ---
Test Reason : Blood Pressure : */* mmHG Vent. Rate : 86 BPM Atrial Rate : 312 BPM P-R Int : * ms QRS Dur : 116 ms QT Int : 376 ms P-R-T Axes : * 89 78 degrees QTcB Int : 450 ms Atrial fibrillation Incomplete right bundle branch block Abnormal ECG No previous ECGs available Confirmed by Flaquito Gee ([id number]) on 12/08/2024 9:54:48 PM Referred By: REFERRED SELF Confirmed By: Flaquito Gee
[2024-12-09 06:59] LABS: Hematocrit (blood only) 49.9 % (42.0-52.0); Hemoglobin 16.4 g/dl (14.0-18.0); Mean Corpuscular Hgb Conc 32.9 g/dL (32.0-36.0); Mean Corpuscular Volume 94.3 fL (80.0-100.0); Mean Platelet Volume 10.7 fL (9.4-12.4); Platelet Count 202 K/uL (130-400); RDW Coefficient of Variation 14.4 % (11.5-14.5); RDW Standard Deviation 49.7 fL (36.4-46.3); Red Blood Count 5.29 M/uL (4.70-6.10); White Blood Count 7.07 K/ul (4.8-10.8)
--- NOTE | 2024-12-09 08:35 | Cardiology Progress Note ---
Date of Service December 09, 2024 Assessment & Plan (1) Acute HFrEF (heart failure with reduced ejection fraction): (2) Cardiomyopathy: (3) Atrial fibrillation with rapid ventricular response: (4) ETOH abuse: (5) Tobacco use: (6) Pericardial effusion: Plan ASSESSMENT/PLAN: 1. Acute heart failure with reduced EF: Etiology likely related to alcohol abuse and/or tachycardia in the setting of atrial fibrillation with rapid ventricular response. Improved but still hypervolemic. NYHA class III symptoms. Continue Lasix 20 mg IV twice daily. Goal net negative fluid balance 1 to 2 L daily. Strict I's and O's. Daily weights. We discussed the importance of a low-sodium diet, less than 2000 mg daily. Heart failure program referral. Spironolactone initiated 12/08/2024. Start low-dose Entresto today. Transition metoprolol to tartrate to metoprolol succinate. Recommend SGLT2 inhibitor prior to or at discharge. 2. Atrial fibrillation with rapid ventricular response: Onset unclear. May have been present for some time. Could be related to his excessive alcohol use, which was discussed with him. Heart rate improved with low-dose metoprolol. Will transition to metoprolol succinate. Anticoagulation for stroke risk reduction. Will initiate Eliquis today and can d/c heparin. Monitor CBC and renal function. We discussed potentially performing transesophageal echo and cardioversion but he declined. Consider cardioversion in the outpatient setting after 4 weeks of therapeutic anticoagulation therapy. He will think about it. 3. Cardiomyopathy: Etiology likely related to excessive alcohol abuse and/or tachycardia from A-fib with RVR. Cannot exclude ischemic heart disease. We discussed these possibilities. He declines coronary angiography. He prefers medical therapy and alcohol cessation. If LV systolic function remains severely reduced despite these measures, can further discuss ischemic evaluation in the outpatient setting. If related to alcohol/tachycardia, should improve with medical therapy, alcohol cessation, and heart rate control. No indication for ICD for primary prevention currently, but would consider if LV systolic function does not improve despite optimal medical therapy in 3 months. Continue telemetry. 4. Pericardial effusion: Small. He will have repeat echocardiograms in the near future to reevaluate LV systolic function. Clinically not in tamponade. Consider limited echo next week at HF appointment. 5. Tobacco abuse: Recommended smoking cessation. 6. Alcohol abuse: We discussed at length the importance of cessation from alcohol use, given his cardiac issues as noted. He also has elevated AST and elevated bilirubin. Will defer to primary hospitalist service for further evaluation of his liver if indicated. We discussed that his heart failure will not likely improve if he continues to consume large amounts of alcohol and he could lose his life given his current cardiac issues. We also discussed the fact that if alcohol is playing a role, he should show improvement with appropriate therapy. He expressed understanding. 7. Disposition: Cardiology will continue to follow. Heart failure program close follow-up after discharge. Patient care communicated with primary hospitalist, Dr. Johnson. I will be away from the hospital this weekend but will sign out to covering oilseed meat presser. Please call continuous improvement coach oilseed meat presser for questions/concerns. Admission and Anticipated Discharge Date Admission Date: December 07, 2024 Subjective He was seen this morning. Shortness of breath has improved but not yet back to baseline. He denies chest pain, palpitations. He believes that his edema has improved. He is tolerating compression stockings. He denies orthopnea. He inquired about the invasive testing that we discussed yesterday and stated that he is thinking about it but still prefers medications at this point. Physical Exam Physical Exam: Gen.: No acute distress. Alert and oriented. HEENT: Anicteric sclera. Neck: Mild JVD. Cardiac: Irregularly irregular. Normal heart rate. Normal S1-S2. No murmurs, rubs, or gallops. Pulmonary: Clear to auscultation bilaterally without wheezes, rales, or rhonchi. Abdomen: Soft, nontender, nondistended, with normoactive bowel sounds. No bruits noted. Extremities: 2+ radial pulses bilaterally. 2+ posterior tibialis pulses bilaterally. 1+ bilateral lower extremity edema to above the knees. No cyanosis. Results & Data Vital Signs (Past 12 Hours) Vital Signs Temp Pulse Pulse Resp BP Pulse Ox Pulse Ox 12/09/24 08:00 12/09/24 08:00 94 12/09/24 07:23 36.4 C L 68 17 141/87 H 94 12/09/24 03:50 36.7 C 61 18 137/80 94 12/09/24 01:58 12/08/24 23:36 36.9 C 61 18 142/81 H 94 12/08/24 23:31 99 H O2 Del Method O2 Del Method 12/09/24 08:00 Room Air 12/09/24 08:00 Room Air 12/09/24 07:23 Room Air 12/09/24 03:50 Room Air 12/09/24 01:58 Room Air 12/08/24 23:36 Room Air 12/08/24 23:31 Intake & Output 12/07/24 12/08/24 12/09/24 12/10/24 06:59 06:59 06:59 06:59 Intake Total 1012.00 / 1012.00 2302.65 / 2302.65 Output Total 3300 / 3300 Balance 1012.00 / 1012.00 -997.35 / -997.35 Weight 261 lb 3.964 oz 245 lb 2.464 oz Laboratory Results Laboratory Results - last 24 hr 12/08/24 12/09/24 11:42 05:26 WBC 7.07 RBC 5.29 Hgb 16.4 Hct 49.9 MCV 94.3 MCH 31.0 MCHC 32.9 RDW Std Deviation 49.7 H RDW Coeff of Crystal 14.4 Plt Count 202 MPV 10.7 Heparin Anti-Xa, Unfract 0.71 H* Sodium 126 L 133 L Potassium 4.6 4.2 Chloride 96 L 99 Carbon Dioxide 24 27 Anion Gap 6 7 BUN 18 19 Creatinine 1.01 1.05 Est Cr Clr Drug Dosing 110.8 103.2 eGFR 88.93 84.88 BUN/Creatinine Ratio 17.8 18.1 Glucose 100 H 107 H Calcium 8.9 9.1 Diagnostic Findings Labs reviewed from 12/09/2024, notable for normal blood counts. Normal potassium. Stable renal function. Telemetry personally reviewed: Atrial fibrillation with reasonable heart rate. Medications Administered Current Inpatient Medications Acetaminophen (Acetaminophen 325 Mg Tab) 650 mg PO Q4H PRN PRN Reason: Pain or Fever Stop: 01/06/25 19:47 Folic Acid (Folic Acid 1 Mg Tab) 1 mg PO QAM [facility] Stop: 01/07/25 08:59 Last Admin: 12/08/24 10:01 Dose: 1 mg Furosemide (Furosemide Inj 20 Mg/2 Ml Vial) 20 mg IV BID [facility] Stop: 01/07/25 13:09 Last Admin: 12/08/24 21:22 Dose: 20 mg Gabapentin (Gabapentin 600 Mg Tab) 600 mg PO Q8H [facility] Stop: 12/09/24 14:01 Last Admin: 12/09/24 05:44 Dose: 600 mg Gabapentin (Gabapentin 600 Mg Tab) 600 mg PO Q12H [facility] Stop: 12/10/24 12:01 Gabapentin (Gabapentin 600 Mg Tab) 600 mg PO Q24H [facility] Stop: 12/11/24 12:01 Heparin Sodium/Dextrose (Heparin Sodium/Dextrose) 25,000 units in 500 mls @ 33 mls/hr IV .[id number] [facility]; Protocol Stop: 01/06/25 19:34 Last Titration: 12/09/24 06:59 Dose: 1,650 units/hr, 33 mls/hr Promethazine HCl (Phenergan) 6.25 mg in 50.25 mls @ 201 mls/hr IV Q6H PRN PRN Reason: Nausea And Vomiting Stop: 01/06/25 19:47 Lorazepam (Lorazepam 2 Mg/1 Ml Vial) 1 mg IV ONE PRN; Protocol PRN Reason: EtoH Withdrawal AWSS 6-10 Metoprolol Tartrate (Metoprolol Tartrate 25 Mg Tab) 12.5 mg PO Q6H [facility] Stop: 01/06/25 21:59 Last Admin: 12/09/24 03:18 Dose: 12.5 mg Multivitamins (Multivitamin Tab) 1 tab PO [facility] Stop: 01/07/25 08:59 Last Admin: 12/08/24 10:01 Dose: 1 tab Polyethylene Glycol (Polyethylene (Miralax) 17 Gm Pack) 17 gm PO DAILY PRN PRN Reason: Constipation Stop: 01/06/25 19:47 Spironolactone (Sp[facility]actone 25 Mg Tab) [facility] Stop: 01/07/25 13:14 Last Admin: 12/08/24 13:59 Dose: 25 mg Thiamine HCl (Thiamine Hcl 100 Mg Tab) 100 mg PO [facility] Stop: 01/07/25 08:59 Last Admin: 12/08/24 10:02 Dose: 100 mg PG Care Time/CCT Total # of Minutes Spent Total Time Spent with Patient: Total time spent is greater than 50% in coordination of care (as documented) at patient's floor/unit and/or counseling patient: Coding Level of Care Code 36871 SUB INP/OBS CARE 3/50MIN Diagnoses Acute HFrEF (heart failure with reduced ejection fraction) I50.21 Cardiomyopathy I42.9 Atrial fibrillation with rapid ventricular response I48.91 ETOH abuse F10.10 Tobacco use Z72.0 Pericardial effusion I31.39
[2024-12-09 08:52] LABS: ANTI-Xa, UFH(UnfractionatedHep 0.71 IU/ml (0.3-0.7)
[2024-12-09 09:30] LABS: BUN Creatinine Ratio 18.1 (10-20); Calcium 9.1 mg/dl (8.6-10.3); Creatinine Clr Calc Pharmacy 103.2 ml/min; Potassium 4.2 mmol/L (3.5-5.1)
[2024-12-09] MEDS: VALSARTAN/SACUBITRIL 26/24MG TAB PO SCH (11:05)
[2024-12-09] MEDS: METOPROLOL SUCC 50MG EXT REL TAB PO SCH (11:06)
--- NOTE | 2024-12-09 11:23 | Hospitalist Progress Note ---
Date of Service December 09, 2024 Assessment & Plan (1) Atrial fibrillation with RVR: Plan: -cardiology consult appreciated -metoprolol -started on eliquis, entrestio -will start jardiance tmw 12/10 -con't diuresis with lasix IV and spironolactone (2) ETOH abuse: Plan: -gabapentin -prn ativan -thiamine -folate Admission and Anticipated Discharge Date Admission Date: December 07, 2024 Subjective Pt states his breathing is better this am. Review of Systems Review of Systems: CONST: Negative for fever, body aches and chills. HENT: Negative for neck pain/stiffness, headache, congestion, sore throat, swelling. EYES: Negative for discharge/pain or vision changes. RESP: Negative for cough/hemoptysis and shortness of breath. CV: Negative chest pain, difficulty breathing, palpitations. ABD: Negative pain, nausea, vomiting. : Negative increase frequency, dysuria, blood in urine or stool. MUSC: Negative for muscle aches, edema. SKIN: Negative rash, lesions/sores. NEURO: Negative headache, dizziness, weakness. Physical Exam Physical Exam: GENERAL APPEARANCE NAD, activity normal for age, well developed/ well nourished, no cyanosis, pallor, or diaphoresis. EYES lids/conjunctiva normal. EARS/NOSE/THROAT Mucous membranes moist, nares normal, lips/teeth normal uvula midline without oral pharyngeal erythema, exudate or swelling TMs normal bilaterally. No lymphangitis/lymphedema. HEAD/NECK normocephalic atraumatic, no facial trauma, neck is supple. RESPIRATORY respiratory effort normal, speaks in full sentences, no tripod position, no accessory muscle use. Lungs clear to auscultation without rhonchi, wheezes, rales CARDIAC Regular rate and rhythm, no edema. ABDOMINAL Soft, ND/NT. No evidence of fluid wave. No pulsatile masses on exam, rebound tenderness, Verma sign or pain over Mcburney's point. MUSCLES/EXTREMITIES No abnormal range of motion, no swelling. SKIN Warm, pink and dry. No rashes, dermatoses, petechiae or lesions. NEUROLOGICAL Speech is clear and appropriate. Normal level of consciousness. Gait and coordination are normal. 5/5 strength in all extremities. PSYCH Normal mood and affect. Judgement/competence is appropriate Results & Data Results & Data Vital Signs (Past 12 Hours) Vital Signs Temp Pulse Pulse Resp BP Pulse Ox Pulse Ox 12/09/24 11:02 36.4 C L 79 17 119/80 94 12/09/24 08:00 12/09/24 08:00 94 12/09/24 07:23 36.4 C L 68 17 141/87 H 94 12/09/24 03:50 36.7 C 61 18 137/80 94 12/09/24 01:58 12/08/24 23:36 36.9 C 61 18 142/81 H 94 12/08/24 23:31 99 H O2 Del Method O2 Del Method 12/09/24 11:02 Room Air 12/09/24 08:00 Room Air 12/09/24 08:00 Room Air 12/09/24 07:23 Room Air 12/09/24 03:50 Room Air 12/09/24 01:58 Room Air 12/08/24 23:36 Room Air 12/08/24 23:31 PG Care Time/CCT Total # of Minutes Spent Total Time Spent with Patient: Total time spent is greater than 50% in coordination of care (as documented) at patient's floor/unit and/or counseling patient: Coding Level of Care Code 41947 SUB INP/OBS CARE 2/35MIN Diagnoses Atrial fibrillation with RVR I48.91 ETOH abuse F10.10
[2024-12-09 16:58] LABS: ANTI-Xa, UFH(UnfractionatedHep 0.59 IU/ml (0.3-0.7)
[2024-12-09] MEDS: APIXABAN 5 MG TABLET PO SCH (20:26)
[2024-12-09] MEDS: GABAPENTIN 600 MG TAB PO SCH (23:01)
[2024-12-09] MEDS: POLYETHYLENE (MIRALAX) 17 GM PACK PO PRN (23:38)
[2024-12-10 06:20] LABS: Hematocrit (blood only) 49.9 % (42.0-52.0); Hemoglobin 16.4 g/dl (14.0-18.0); Mean Corpuscular Hemoglobin 30.8 pg (25.0-34.0); Mean Corpuscular Hgb Conc 32.9 g/dL (32.0-36.0); Mean Corpuscular Volume 93.6 fL (80.0-100.0); Mean Platelet Volume 10.2 fL (9.4-12.4); Platelet Count 223 K/uL (130-400); RDW Coefficient of Variation 14.4 % (11.5-14.5); RDW Standard Deviation 49.2 fL (36.4-46.3); Red Blood Count 5.33 M/uL (4.70-6.10); White Blood Count 7.38 K/ul (4.8-10.8)
[2024-12-10 06:50] LABS: BUN Creatinine Ratio 16.4 (10-20); Creatinine Clr Calc Pharmacy 96.2 ml/min; Potassium 4.1 mmol/L (3.5-5.1)
--- NOTE | 2024-12-10 08:21 | Cardiology Progress Note ---
Date of Service December 10, 2024 Assessment & Plan (1) Acute HFrEF (heart failure with reduced ejection fraction): (2) Cardiomyopathy: (3) Atrial fibrillation with rapid ventricular response: (4) ETOH abuse: (5) Tobacco use: (6) Pericardial effusion: Plan ASSESSMENT/PLAN: 1. Acute heart failure with reduced EF: Symptomatically improving. He did not seem to affect a good diuresis yesterday. Renal function and electrolytes are stable. I think we will need to intensify his diuretic regimen. 2. Atrial fibrillation with rapid ventricular response: Heart rates improved. Will monitor this as he becomes more active. We could increase the metoprolol dose if necessary. No overt symptoms. Started on oral anticoagulation yesterday. No immediate plans for cardioversion although this could be entertained if he remains in the hospital next week. 3. Cardiomyopathy: Unclear etiology. Possibly related to atrial fibrillation and high ventricular rates. Known alcohol abuse which could also be an etiology. Certainly in a demographic of patients who have coronary disease although no symptoms of angina. Will see how he responds to improved rate control, possible return to sinus rhythm and abstinence from alcohol. Will continue addressing his medical regimen with the addition of an SGLT2 inhibitor today. 4. Pericardial effusion: Small. He will have repeat echocardiograms in the near future to reevaluate LV systolic function. Clinically not in tamponade. Consider limited echo next week at HF appointment. 5. Tobacco abuse: Recommended smoking cessation. 6. Alcohol abuse: Advised to stop. 7. Disposition: Certainly improved from admission. He seems to be tolerating his medical regimen. I think he is ambulatory with adequate rate control and minimal symptoms we could move towards discharge. He would likely require some diuretic at the time of discharge the dose to be determined. Admission and Anticipated Discharge Date Admission Date: December 07, 2024 Subjective This morning patient claimed to be feeling better. He states that his breathing is certainly improved from initial hospitalization. He has been ambulatory with only mild shortness of breath. Still not back to baseline by his report. No chest pain. No dizziness or lightheadedness. No sense of palpitation. Review of Systems Review of Systems: Some continued swelling in the legs. Abdominal distention improved. Physical Exam Physical Exam: Gen.: No acute distress. Alert and oriented. Answers all questions appropriately. HEENT: Anicteric sclera. Cardiac: Irregularly irregular. Normal heart rate. Normal S1-S2. No murmurs, rubs, or gallops. Pulmonary: Occasional crackle in the bases bilaterally. Normal respiratory effort. Some mild wheezing. Abdomen: Soft, nontender, nondistended, with normoactive bowel sounds. No bruits noted. Extremities: Mild lower extremity edema. Results & Data Vital Signs (Past 12 Hours) Vital Signs Temp Pulse Pulse Resp BP Pulse Ox O2 Del Method 12/10/24 07:03 36.5 C 91 H 133/85 98 Room Air 12/10/24 03:03 36.5 C 54 L 18 119/88 93 Room Air 12/09/24 23:44 92 H 12/09/24 22:55 36.7 C 85 18 135/107 H 95 Room Air Laboratory Results Abnormal Lab Results 12/09/24 12/09/24 12/10/24 05:26 15:32 05:33 WBC 7.38 RBC 5.33 Hgb 16.4 Hct 49.9 MCV 93.6 MCH 30.8 MCHC 32.9 RDW Std Deviation 49.2 H RDW Coeff of Crystal 14.4 Plt Count 223 MPV 10.2 Heparin Anti-Xa, Unfract 0.71 H* 0.59 Sodium 133 L 140 Potassium 4.2 4.1 Chloride 99 101 Carbon Dioxide 27 32 Anion Gap 7 7 BUN 19 18 Creatinine 1.05 1.10 Est Cr Clr Drug Dosing 103.2 96.2 eGFR 84.88 80.27 BUN/Creatinine Ratio 18.1 16.4 Glucose 107 H 92 Calcium 9.1 9.0 PG Care Time/CCT Total # of Minutes Spent Total Time Spent with Patient: Total time spent is greater than 50% in coordination of care (as documented) at patient's floor/unit and/or counseling patient: Coding Level of Care Code 42946 SUB INP/OBS CARE 2/35MIN Diagnoses Acute HFrEF (heart failure with reduced ejection fraction) I50.21 Cardiomyopathy I42.9 Atrial fibrillation with rapid ventricular response I48.91 ETOH abuse F10.10 Tobacco use Z72.0 Pericardial effusion I31.39
[2024-12-10] MEDS: EMPAGLIFLOZIN 10 MG TAB PO SCH (09:41)
[2024-12-10] MEDS: FUROSEMIDE INJ 20 MG/2 ML VIAL IV ONE (09:41)
--- NOTE | 2024-12-10 10:41 | Hospitalist Progress Note ---
Date of Service December 10, 2024 Assessment & Plan (1) Atrial fibrillation with RVR: Plan: -cardiology consult appreciated -metoprolol -started on eliquis, entrestio -started jardiance tmw 12/10 -con't diuresis with increased lasix 40 IV BID and spironolactone (2) ETOH abuse: Plan: -gabapentin -prn ativan -thiamine -folate Plan Plan for d/c home on 12/11 Admission and Anticipated Discharge Date Admission Date: December 07, 2024 Subjective Pt's breathing has improved, resting at bedside with no complaints. Review of Systems Review of Systems: CONST: Negative for fever, body aches and chills. HENT: Negative for neck pain/stiffness, headache, congestion, sore throat, swelling. EYES: Negative for discharge/pain or vision changes. RESP: Negative for cough/hemoptysis and shortness of breath. CV: Negative chest pain, difficulty breathing, palpitations. ABD: Negative pain, nausea, vomiting. : Negative increase frequency, dysuria, blood in urine or stool. MUSC: Negative for muscle aches, edema. SKIN: Negative rash, lesions/sores. NEURO: Negative headache, dizziness, weakness. Physical Exam Physical Exam: GENERAL APPEARANCE NAD, activity normal for age, well developed/ well nourished, no cyanosis, pallor, or diaphoresis. EYES lids/conjunctiva normal. EARS/NOSE/THROAT Mucous membranes moist, nares normal, lips/teeth normal uvula midline without oral pharyngeal erythema, exudate or swelling TMs normal bilaterally. No lymphangitis/lymphedema. HEAD/NECK normocephalic atraumatic, no facial trauma, neck is supple. RESPIRATORY respiratory effort normal, speaks in full sentences, no tripod position, no accessory muscle use. Lungs clear to auscultation without rhonchi, wheezes, rales CARDIAC Regular rate and rhythm, no edema. ABDOMINAL Soft, ND/NT. No evidence of fluid wave. No pulsatile masses on exam, rebound tenderness, Verma sign or pain over Mcburney's point. MUSCLES/EXTREMITIES No abnormal range of motion, no swelling. SKIN Warm, pink and dry. No rashes, dermatoses, petechiae or lesions. NEUROLOGICAL Speech is clear and appropriate. Normal level of consciousness. Gait and coordination are normal. 5/5 strength in all extremities. PSYCH Normal mood and affect. Judgement/competence is appropriate Results & Data Results & Data Vital Signs (Past 12 Hours) Vital Signs Temp Pulse Pulse Resp BP Pulse Ox Pulse Ox 12/10/24 09:34 107 H 12/10/24 08:00 95 12/10/24 07:03 36.5 C 91 H 133/85 98 12/10/24 03:03 36.5 C 54 L 18 119/88 93 12/09/24 23:44 92 H 12/09/24 22:55 36.7 C 85 18 135/107 H 95 O2 Del Method O2 Del Method 12/10/24 09:34 12/10/24 08:00 Room Air 12/10/24 07:03 Room Air 12/10/24 03:03 Room Air 12/09/24 23:44 12/09/24 22:55 Room Air PG Care Time/CCT Total # of Minutes Spent Total Time Spent with Patient: Total time spent is greater than 50% in coordination of care (as documented) at patient's floor/unit and/or counseling patient: Coding Level of Care Code 94034 SUB INP/OBS CARE 2/35MIN Diagnoses Atrial fibrillation with RVR I48.91 ETOH abuse F10.10
[2024-12-10] MEDS: FUROSEMIDE 40 MG/4 ML VIAL IV SCH (17:17)
[2024-12-11 07:14] LABS: Hematocrit (blood only) 52.1 % (42.0-52.0); Mean Corpuscular Hemoglobin 31.5 pg (25.0-34.0); Mean Corpuscular Hgb Conc 34.5 g/dL (32.0-36.0); Mean Corpuscular Volume 91.1 fL (80.0-100.0); Mean Platelet Volume 10.1 fL (9.4-12.4); Platelet Count 207 K/uL (130-400); RDW Coefficient of Variation 14.1 % (11.5-14.5); RDW Standard Deviation 47.5 fL (36.4-46.3); Red Blood Count 5.72 M/uL (4.70-6.10); White Blood Count 6.89 K/ul (4.8-10.8)
--- NOTE | 2024-12-11 08:41 | Cardiology Progress Note ---
Date of Service December 11, 2024 Assessment & Plan (1) Acute HFrEF (heart failure with reduced ejection fraction): (2) Cardiomyopathy: (3) Atrial fibrillation with rapid ventricular response: (4) ETOH abuse: (5) Tobacco use: (6) Pericardial effusion: Plan ASSESSMENT/PLAN: 1. Acute heart failure with reduced EF: Symptomatically improving. Still occasional crackle in the bases of the lungs. Effected a better diuresis on a higher dose of Lasix yesterday. Still waiting for electrolytes and renal function today. 2. Atrial fibrillation with rapid ventricular response: Heart rates improved. Will continue current medical regimen. Could increase metoprolol if he has higher rates when active. Continue systemic anticoagulation. 3. Cardiomyopathy: On an aggressive medical regimen to include metoprolol succinate, Entresto, Jardiance and spironolactone. He seems to be tolerating these doses. Will consider increasing the doses over the next few days or in the outpatient setting of his discharge. 4. Pericardial effusion: Small. He will have repeat echocardiograms in the near future to reevaluate LV systolic function. Clinically not in tamponade. 5. Tobacco abuse: Recommended smoking cessation. 6. Alcohol abuse: Advised to stop. 7. Disposition: Once he is ambulatory without significant dyspnea or notably elevated heart rates we could consider moving towards discharge. He is on a good medical regimen at this time which could be continued. He will need a dose of diuretic at the time of discharge, Lasix 40 mg twice daily would seem reasonable to start. Follow-up has been arranged in our heart failure clinic. Admission and Anticipated Discharge Date Admission Date: December 07, 2024 Subjective This morning patient clinically feeling well. He feels that his breathing is improved. He was ambulatory yesterday without dizziness or lightheadedness. No limiting dyspnea. Review of Systems Review of Systems: Swelling improved. Physical Exam Physical Exam: Gen.: No acute distress. Alert and oriented. Answers all questions appropriately. HEENT: Anicteric sclera. Cardiac: Irregularly irregular. Normal heart rate. Normal S1-S2. No murmurs, rubs, or gallops. Pulmonary: Occasional crackle in the bases bilaterally. Normal respiratory effort. Some mild wheezing. Abdomen: Soft, nontender, nondistended, with normoactive bowel sounds. No bruits noted. Extremities: Minimal lower extremity edema. Results & Data Vital Signs (Past 12 Hours) Vital Signs Temp Pulse Pulse Resp BP BP Pulse Ox 12/11/24 07:11 36.6 C 65 18 132/80 93 12/11/24 03:27 36.4 C L 114 H 18 114/74 95 12/11/24 01:16 79 12/10/24 22:28 36.7 C 95 H 16 132/93 93 O2 Del Method 12/11/24 07:11 Room Air 12/11/24 03:27 Room Air 12/11/24 01:16 12/10/24 22:28 Room Air Laboratory Results Abnormal Lab Results 12/11/24 06:48 WBC 6.89 RBC 5.72 Hgb 18.0 Hct 52.1 H MCV 91.1 MCH 31.5 MCHC 34.5 RDW Std Deviation 47.5 H RDW Coeff of Crystal 14.1 Plt Count 207 MPV 10.1 PG Care Time/CCT Total # of Minutes Spent Total Time Spent with Patient: Total time spent is greater than 50% in coordination of care (as documented) at patient's floor/unit and/or counseling patient: Coding Level of Care Code 05939 SUB INP/OBS CARE 2/35MIN Diagnoses Acute HFrEF (heart failure with reduced ejection fraction) I50.21 Cardiomyopathy I42.9 Atrial fibrillation with rapid ventricular response I48.91 ETOH abuse F10.10 Tobacco use Z72.0 Pericardial effusion I31.39
--- NOTE | 2024-12-11 11:56 | Discharge Summary ---
Discharge Summary Date of Service December 11, 2024 Principal Dx & Hospital Course #1 = Principal Diagnosis (1) Atrial fibrillation with RVR: -cardiology consult appreciated -metoprolol -started on eliquis, entrestio -started jardiance tmw 12/10 -con't diuresis with increased lasix 40 IV BID and spironolactone (2) ETOH abuse: -gabapentin -prn ativan -thiamine -folate Plan Plan for d/c home on 12/11 Admission HPI Per Admitting Provider Patient is 54 year old male with PMH HTN, anxiety, ETOH abuse, tobacco use presented to ER with c/o CP. Patient states moved to area several years ago but has not got established with PCP here. He reports being on BP med (?lisinopril 20mg, HCTZ) and an unknown anxiety medicine however he stopped taking several years ago since he never established with PCP. He attempted to get established at [facility] today. Presented there today for CP and found to be in Afib RVR and sent to ER. Patient states started with anterior CP with exertion, neck tightness, and SOB 4 days ago. He also noticed LE edema and swollen abdomen 4 days ago. Also felt lightheaded but denies syncope. He reports ongoing cough. Drinks Rum 3 "big glasses" daily and estimates it equal approximately 9 shots. He reports last drink 3-4 days ago when his CP & SOB symptoms started. Attempting to quit smoking went from 1/2ppd and past 2 months smoking 2-3 cigarettes a day. Past 4 days has not been smoking. He denies known history of atrial fibrillation, CHF, cirrhosis. Denies history ETOH withdrawal but states hasn't been without alcohol for several years. Denies fever/chills, diaphoresis, N/V/D/C, LOPEZ, vision changes, hemoptysis, sore throat, rhinorrhea, abdominal pain, extremity weakness, rashes, urinary symptoms. Discharge Exam GENERAL APPEARANCE NAD, activity normal for age, well developed/ well nourished, no cyanosis, pallor, or diaphoresis. EYES lids/conjunctiva normal. EARS/NOSE/THROAT Mucous membranes moist, nares normal, lips/teeth normal uvula midline without oral pharyngeal erythema, exudate or swelling TMs normal bilaterally. No lymphangitis/lymphedema. HEAD/NECK normocephalic atraumatic, no facial trauma, neck is supple. RESPIRATORY respiratory effort normal, speaks in full sentences, no tripod position, no accessory muscle use. Lungs clear to auscultation without rhonchi, wheezes, rales CARDIAC Regular rate and rhythm, no edema. ABDOMINAL Soft, ND/NT. No evidence of fluid wave. No pulsatile masses on exam, rebound tenderness, Verma sign or pain over Mcburney's point. MUSCLES/EXTREMITIES No abnormal range of motion, no swelling. SKIN Warm, pink and dry. No rashes, dermatoses, petechiae or lesions. NEUROLOGICAL Speech is clear and appropriate. Normal level of consciousness. Gait and coordination are normal. 5/5 strength in all extremities. PSYCH Normal mood and affect. Judgement/competence is appropriate Discharge Plan Discharge Items Patient Disposition: Home - Self-Care Reason For Visit: AFIB RVR Discharge Diagnosis: Afib with rvr, cHF Activity: Resume your previous activity Non-emergency contact: Primary Care Provider Call non-emergency contact if: you have any medication questions Follow-up/Referrals: Tonja Jackson PA-C [Physician Tire Sorter] - 12/16/24 10:30 am (Congestive Heart Failure Program Appointment Information Early follow up is essential to managing your heart failure. An appointment has been scheduled for you with the [facility] within 7 days of discharge. Anticipate this visit to be 30-60 minutes long. Please expect a fire equipment operator phone call from one of our nurses approximately 48 hours from discharge. They will also be placing an order for lab work to be completed 1-2 days prior to your heart failure follow up appointment. Please be sure to have this done so we can go over the results when you come in. Office Location The cardiology office building is located in front of the hospital at [address] Bring the following with you to your follow-up doctor appointments: Please bring your daily weight log any discharge paperwork all of your medication bottles with you to this visit. ) PCP,NO [Primary Care Provider] - Diet: Regular Addtl Attending Provider Instructions: Follow up with cardiology in 1 week Addtl Septic Cleaner Provider Instructions: Call your Primary Care doctor if any of the following symptoms or problems start or get worse: * Shortness of breath or difficulty breathing * Wake up at night short of breath * Chest pain * Cough * Swelling of your hands, feet, or legs * More fatigued or tired with your normal activity * Palpitations - sudden fast heart beats WEIGHT * Weigh yourself every morning after using the bathroom. * Use the same scale. * Wear the same amount of clothing. * Write your weight down on a chart. * Call your Primary Care doctor if you gain more than 2-3 pounds in 1-2 days. MEDICATIONS * Use this discharge instruction sheet for medication instructions. * Take your medications at the time your doctor ordered. * Do not skip a dose of your medicines. * If you miss a dose of medicine, take it as soon as possible, but DO NOT DOUBLE A DOSE. * Read your medicine information when you get home. * Know all of the side effects of your medicine. If in doubt, ask your pharmacist * Call your Primary Care doctor's office if you have any side effects. * Be sure all of your doctors know what medicine and herbs you take (including cold, flu, and herbal medicine). Take the following with you to your follow-up doctor appointments: * Weight Chart * Medication List * List of questions Do not drink excessive alcohol, beer or wine. Pending Studies at Discharge: No Stand-Alone Forms: [facility], Smoking Cessation Medications and DC Order Prescriptions: New thiamine HCl (vitamin B1) 100 mg Tablet 100 mg PO QAM Qty: 30 0RF folic acid 1 mg Tablet 1 mg PO QAM Qty: 30 0RF multivitamin with folic acid [Daily-Zaheer (with folic acid)] 400 mcg Tablet 1 tab PO QAM Qty: 30 0RF No Action Eliquis 5 mg tablet 5 mg PO BID Qty: 180 3RF Jardiance 10 mg tablet 10 mg PO DAILY Qty: 90 3RF furosemide [Lasix] 40 mg tablet 40 mg PO DAILY Qty: 90 3RF spironolactone 25 mg tablet 25 mg PO QAM Qty: 90 3RF metoprolol succinate 100 mg tablet extended release 24 hr 100 mg PO QAM Qty: 30 2RF sacubitril-valsartan [Entresto] 24-26 mg tablet 1 tab PO BID Qty: 60 0RF Discharge Orders: Discharge Order (Routine); Ordered 12/11/24 Ordered By: Dean Stallings/Other Patient Handouts: Prediabetes, 5 Steps for Eating Healthier Admission Data Admit Date/Time: 12/07/24 18:16 Attending Provider: Dean Johnson Admit Provider: Bret Murray Primary Care Provider: PCP,NO Other Providers: Shankar Grijalva Other Interventions: Discharge Summary Assessment (RN) Last Done: 12/11/24 16:29 Hospital Stay Data Consultations 12/07/24 19:48 Consult Cardiology Routine 12/08/24 13:09 [facility] CHF Program Referral Routine Pending Results Patient Have Any Pending Studies at Discharge: No Discharge Instructions Given to Patient (Per Discharging Provider) Follow up with cardiology in 1 week Total Time Total Time Spent Total Time Spent (In Minutes): 50 Coding Level of Care Code 04883 INP/OBS DISCH >30 MIN Diagnoses Atrial fibrillation with RVR I48.91 ETOH abuse F10.10
[2024-12-11] MEDS: GABAPENTIN 600 MG TAB PO SCH (12:03)
[2024-12-11 16:06] VITALS: PULSE 78; RESP 20; TEMP 98.1; O2SAT 92
[2024-12-11 16:31] VITALS: BP 132/93
== END 2024-12-11 17:56 | disposition home or self-care (01) | DRG 308 ==
LOC: ED 16:23 → MERGE 18:16 → SUATTDRO 18:16 → EDINP 18:16 → 4W 19:47